=== PATIENT | female | born 1980 | race Caucasian/White ===

== ENCOUNTER → 2024-05-25 | Day surgery (SDC) | payer OTHER ==
[~2024-05-25] MED LIST: APPLE CIDER VI300 MG PO; DEXMEDETOMIDINE HCL 200 MCG/2 ML VIAL ONE; IRON PO; LACTATED RINGER'S 1,000 ML ONE; LEVOTHYROXINE25 MCG PO; LIDOCAINE HCL 2% LOCAL INJ 5 ML SDV VIAL INJ ONE; LOSARTAN POTASS25 MG PO; METOCLOPRAMIDE HCL 10 MG/2ML VIAL ONE; MIDAZOLAM HCL 2 MG/2 ML VIAL ONE; PROPOFOL IV EMULSION 10 MG/ML 20 ML VIAL ONE; PROPOFOL IV EMULSION 10 MG/ML 50 ML VIAL IV ONE; ROSUVASTATIN CA20 MG PO; [UNRECOGNIZED DRUG - OTHER] PO
[2024-05-25 13:15] VITALS: BP 132/81; PULSE 75; RESP 16; O2SAT 98
[2024-05-25 14:21] LABS: WBC,FECAL (FECAL LACTOFERRIN) NEGATIVE (NEGATIVE)
[2024-05-28 19:09] LABS: ENDOMYSIAL ANTIBODIES, IGA Negative (Negative)
[2024-05-29 08:20] LABS: IMMUNOGLOBULIN A 174 mg/dL (87-352); TISSUE TRANSGLUTAMINASE IGA AB 3 U/mL (0-3)
== END | disposition home or self-care (01) ==
LOC: OR 09:18
PROVIDERS: ATTEND Internal Medicine Gastroenterology
DX: K29.70 Gastritis, unspecified, without bleeding (principal); K62.1 Rectal polyp; K52.9 Noninfective gastroenteritis and colitis, unspecified; K31.89 Other diseases of stomach and duodenum; K20.90 Esophagitis, unspecified without bleeding; K25.9 Gastric ulcer, unspecified as acute or chronic, without hemorrhage or perforation; K44.9 Diaphragmatic hernia without obstruction or gangrene; K62.89 Other specified diseases of anus and rectum; K64.8 Other hemorrhoids; Z71.3 Dietary counseling and surveillance; D64.89 Other specified anemias; I10 Essential (primary) hypertension; Z71.89 Other specified counseling; E78.5 Hyperlipidemia, unspecified; E03.9 Hypothyroidism, unspecified; E66.01 Morbid (severe) obesity due to excess calories; M54.9 Dorsalgia, unspecified; Z88.6 Allergy status to analgesic agent; Z01.810 Encounter for preprocedural cardiovascular examination; Z79.899 Other long term (current) drug therapy; Z68.38 Body mass index [BMI] 38.0-38.9, adult; Z87.891 Personal history of nicotine dependence
CPT/HCPCS: 36415; 43239; 45380; 82784; 83516; 83630; 83993; 84702; 86256; 87045; 87177; 87324; 87328; 87449; 93005; J2001; J2250; J2470; J2704 ×2; J2765; J7121; 45378